=== PATIENT | female | born 1985 | race American Indian/Alaskan Native ===

== ENCOUNTER 2024-11-16 14:16 | Emergency (ER) | payer OTHER ==
[~2024-11-16] VITALS: Ht 149.9 cm; Wt 104.3 kg
[2024-11-16] MEDS ORDERED: CHILDREN'S ASPI81 MG (15:47)
[2024-11-16] MEDS ORDERED: NORVASC5 MG (15:47)
[2024-11-16] MEDS ORDERED: LABETALOL HCL100 MG (15:47)
[2024-11-16] MEDS ORDERED: TRAMADOL HCL 50 MG TABLET PO ONE (16:30)
[2024-11-16] MEDS ORDERED: BARIUM SULFATE 450 ML ORAL.SUSP PO ONE (19:01)
[2024-11-16 19:48] LABS: HEMATOCRIT 35.5 % (36.0-45.00); HEMOGLOBIN 12.4 g/dL (12.0-15.00); MEAN CELL VOLUME 84.2 fL (80.00-100.00); MEAN CORPUSCULAR HEMOGLOBIN 29.4 pg (27.00-32.0); MEAN CORPUSCULAR HGB CONC 34.9 g/dl (32.0-36.0); PLATELET COUNT 326 K/uL (150-450); RED BLOOD COUNT 4.21 M/uL (4.00-6.00); RED CELL DISTRIBUTION WIDTH 13.2 % (11.5-14.5)
[2024-11-16 20:13] LABS: INR 1.02; PARTIAL THROMBOPLASTIN TIME 23.2 SECONDS (22.0-34.0); PROTHROMBIN TIME 11.1 SECONDS (9.0-11.5)
[2024-11-16 20:20] LABS: ALBUMIN 3.8 gm/dL (3.4-5.0); ALKALINE PHOSPHATASE 109 U/L (50-136); ALT/SGPT 45 U/L (12-78); ANION GAP 10 (10.0-20.0); AST/SGOT 34 U/L (15-37); BILIRUBIN TOTAL 0.74 mg/dL (0.3-1.2); BLOOD UREA NITROGEN 9 mg/dL (7-18); BUN CREA RATIO 13 (7.0-25.0); CARBON DIOXIDE 27 mEq/L (21-32); CHLORIDE 106 mmol/L (98-107); CREATININE SERUM 0.67 mg/dL (0.55-1.02); GFR 97.48; GLOBULINA 4.3 G/DL (2.4-3.5); GLUCOSE FASTING 79 mg/dL (65-100); OSMOLALITY SERUM 277 MOSM/KG (275-295); POTASSIUM 3.04 mEq/L (3.5-5.1); SODIUM 140 mmol/L (136-145); TOTAL PROTEIN 8.1 gm/dL (6.4-8.2)
[2024-11-16 20:32] LABS: HCG QUANTITATIVE < 1 mUI/mL (1-3)
[2024-11-16] MEDS ORDERED: NORFLEX100MG PO (23:12)
[2024-11-16 23:13] LABS: URINE APPEARANCE Clear; URINE BILIRRUBIN Small (NEGATIVE); URINE BLOOD Negative; URINE COLOR Dark Yellow; URINE GLUCOSE Negative (NEGATIVE); URINE KETONE 15 (NEGATIVE); URINE LEUKOCYTE Negative; URINE NITRATE Negative; URINE PROTEIN Trace (NEGATIVE)
[2024-11-16 23:17] LABS: URINE BACTERIA 1789.3 uL (0.0-1933); URINE EPITHELIAL CELLS 38.6 uL (0.0-38.8); URINE RBC 28.4 uL (0.0-20.8); URINE WBC 9.4 uL (0.0-23.2)
[2024-11-16 23:41] LABS: COCAINE NEGATIVE (NEGATIVE); METHADONE NEGATIVE (NEGATIVE); OPIATES NEGATIVE (NEGATIVE); THC ( Cannabinoids) NEGATIVE (NEGATIVE)
[2024-11-16 23:56] LABS: URINE CAST 0.29 uL (0.0-1.40)
== END 2024-11-16 23:24 | disposition home or self-care (01) ==
LOC: ER 14:17
PROVIDERS: General Practice
DX: R07.81 Pleurodynia (principal); T74.11XA Adult physical abuse, confirmed, initial encounter; I10 Essential (primary) hypertension